=== PATIENT | female | born 1975 | race Caucasian/White ===

== ENCOUNTER 2016-10-13 14:05 | Observation (INO) | payer OTHER ==
[~2016-10-13] VITALS: Ht 157.5 cm; Wt 73.9 kg
[~2016-10-13 14:05] MED LIST: AVIANE 0.02 MG-1 TAB PO; ENBREL50 MG/ML SUBQ; ZITHROMAX500 M1 PO; [UNRECOGNIZED DRUG - OTHER] PO
[2016-10-13 15:08] VITALS: BP 119/58
[2016-10-13] MEDS ORDERED: PRENATAL VITAMI1 TA2 PO (17:04)
[2016-10-13] MEDS ORDERED: NATURAL IRON65 MG PO (17:04)
== END 2016-10-13 17:17 | disposition home or self-care (01) ==
LOC: MLD 14:05
PROVIDERS: ADMIT Obstetrics & Gynecology; ATTEND Obstetrics & Gynecology
DX: O36.8130 Decreased fetal movements, third trimester, not applicable or unspecified (principal); Z3A.35 35 weeks gestation of pregnancy
CPT/HCPCS: 76805; 76819; G0378

== ENCOUNTER 2016-11-20 20:09 | Observation (INO) | payer OTHER ==
[~2016-11-20] VITALS: Ht 157.5 cm; Wt 76.2 kg
[~2016-11-20 20:09] MED LIST changes: +NATURAL IRON65 MG PO; +PRENATAL VITAMI1 TA2 PO
== END 2016-11-20 22:15 | disposition home or self-care (01) ==
LOC: MLD 20:09
PROVIDERS: ADMIT Obstetrics & Gynecology; ATTEND Obstetrics & Gynecology
DX: O36.8130 Decreased fetal movements, third trimester, not applicable or unspecified (principal); Z3A.38 38 weeks gestation of pregnancy
CPT/HCPCS: 76815; G0378; Q0092

== ENCOUNTER 2016-11-21 15:44 | Inpatient (IN) | payer OTHER ==
[~2016-11-21] VITALS: Ht 170.2 cm; Wt 72.1 kg
[2016-11-21 16:42] VITALS: BP 125/62
[2016-11-21] MEDS ORDERED: OXYTOCIN 20 UNITS/LR PREMIX 1,000 ML IV SCH (20:25)
[2016-11-21] MEDS ORDERED: METHYLERGONOVINE 0.2 MG/ML AMP IM SCH (20:25)
[2016-11-21] MEDS ORDERED: OXYTOCIN 10 UNITS/ML VIAL IM ONE (20:25)
[2016-11-21] MEDS ORDERED: CARBOPROST 250 MCG/ML AMP IM PRN (20:25)
[2016-11-21] MEDS ORDERED: PROMETHAZINE 25 MG/ML VIAL IVP PRN (20:25)
[2016-11-21] MEDS ORDERED: MISOPROSTOL 25 MCG TAB VG PRN (21:05)
[2016-11-21] MEDS: LACTATED RINGERS 1,000 ML IV SCH (21:37)
[2016-11-21] MEDS ORDERED: MISOPROSTOL 25 MCG TAB ONE (21:52)
[2016-11-22] MEDS ORDERED: MISOPROSTOL 25 MCG TAB ONE (03:05)
[2016-11-22] MEDS: LACTATED RINGERS 1,000 ML IV SCH ×2 (05:42→14:30)
[2016-11-22] MEDS ORDERED: OXYTOCIN 20 UNITS/LR PREMIX 1,000 ML IV ONE (06:36)
--- NOTE | 2016-11-22 09:08 | NUR ---
PATIENT HAS BEEN SCREENED AND CATEGORIZED LOW NUTRITION RISK. PATIENT WILL BE SEEN WITHIN 7 DAYS OF ADMISSION. 11/28/[address]
[2016-11-22] MEDS ORDERED: NALBUPHINE HYDROCHLORIDE 10 MG/ML VIAL ONE ×2 (10:19→14:47)
[2016-11-22] MEDS ORDERED: PROMETHAZINE 25 MG/ML VIAL ONE ×2 (10:19→14:47)
[2016-11-22] MEDS: NALBUPHINE 10 MG/ML AMP IVP PRN ×2 (10:22→14:50)
[2016-11-22] MEDS ORDERED: BENZOCAINE/MENTHOL 20%-0.5% 60 GM CAN TP PRN (17:40)
[2016-11-22] MEDS ORDERED: HYDROcodone/APAP 5/325 MG 1 TAB TAB PO PRN ×2 (17:40)
[2016-11-22] MEDS ORDERED: oxyCODONE/APAP 5/325 MG 1 TAB TAB PO PRN (17:40)
[2016-11-22] MEDS ORDERED: WITCH HAZEL 40 PAD PACKAGE TP PRN (17:40)
[2016-11-22] MEDS ORDERED: OXYTOCIN 10 UNITS/ML VIAL IM PRN (17:40)
[2016-11-22] MEDS ORDERED: METHYLERGONOVINE 0.2 MG TAB PO PRN (17:40)
[2016-11-22] MEDS ORDERED: BISACODYL 10 MG SUPP RC PRN (17:40)
[2016-11-22] MEDS ORDERED: METHYLERGONOVINE 0.2 MG/ML AMP IM PRN (17:40)
[2016-11-22] MEDS ORDERED: SODIUM PHOSPHATE 118 ML ENEM RC PRN (17:40)
[2016-11-22] MEDS ORDERED: MEASLES, MUMPS, AND RUBELLA 1 VIAL SQVAC PRN (17:40)
[2016-11-22] MEDS: SENNA 8.6 MG TAB PO SCH (20:59)
[2016-11-22] MEDS ORDERED: DOCUSATE SOD/SENNA 50/8.6 MG 1 TAB PO SCH (21:00)
[2016-11-22] MEDS ORDERED: BISACODYL 5 MG TABEC PO SCH (21:00)
[2016-11-22] MEDS: CALCIUM POLYCARBOPHIL 625 MG TAB PO SCH (21:00)
[2016-11-23] MEDS: CALCIUM POLYCARBOPHIL 625 MG TAB PO SCH ×4 (08:21→20:40)
[2016-11-23] MEDS: oxyCODONE/APAP 5/325 MG 1 TAB TAB PO PRN ×2 (08:21→20:41)
[2016-11-23] MEDS ORDERED: INFLUENZA VIRUS VACCINE QUAD 0.5 ML SYR IMVAC SCH (13:25)
[2016-11-23] MEDS: SENNA 8.6 MG TAB PO SCH (20:42)
[2016-11-23] MEDS ORDERED: DOCUSATE SOD/SENNA 50/8.6 MG 1 TAB PO SCH (21:00)
[2016-11-24] MEDS ORDERED: MOTRIN600 M1 PO (12:24)
== END 2016-11-24 14:20 | disposition home or self-care (01) | DRG 560 ==
LOC: MLD 15:44 → OBSVTOIN 19:15 → MFCC 11-22 20:37
PROVIDERS: ADMIT Obstetrics & Gynecology; ATTEND Obstetrics & Gynecology
PROC: 10E0XZZ Delivery of Products of Conception, External Approach (ICD-10-PCS; principal; 2016-11-22)
PROC: 10907ZC Drainage of Amniotic Fluid, Therapeutic from Products of Conception, Via Natural or Artificial Opening (ICD-10-PCS; 2016-11-22)
PROC: 3E0234Z Introduction of Serum, Toxoid and Vaccine into Muscle, Percutaneous Approach (ICD-10-PCS; 2016-11-23)
DX: O62.3 Precipitate labor (principal); O09.523 Supervision of elderly multigravida, third trimester; Z37.0 Single live birth; Z3A.38 38 weeks gestation of pregnancy; Z23 Encounter for immunization
CPT/HCPCS: G0378 ×4